=== PATIENT | female | born 1960 | race Caucasian/White ===

== ENCOUNTER → 2018-08-20 | Outpatient (CLI) | payer OTHER | LOC: CAT 13:15 | DX: Z13.6 Encounter for screening for cardiovascular disorders (principal); E78.00 Pure hypercholesterolemia, unspecified ==

== ENCOUNTER → 2018-08-28 | Outpatient (CLI) | payer OTHER | LOC: ULTRA 10:13 | DX: R79.89 Other specified abnormal findings of blood chemistry (principal) ==